=== PATIENT | female | born 1995 | race Caucasian/White ===

== ENCOUNTER 2017-02-12 01:36 | Outpatient (CLI) | payer MEDICAID ==
[~2017-02-12] VITALS: Ht 165.1 cm; Wt 78.2 kg
[~2017-02-12 01:36] MED LIST: LORTAB 5/500 501 TAB PO; NO HOME MEDICATIONS
[2017-02-12 01:43] VITALS: BP 129/76; PULSE 82; TEMP 98.1
[2017-02-12] MEDS ORDERED: PRIMROSE OIL PO (02:12)
[2017-02-12 02:15] VITALS: BP 129/76; PULSE 82; TEMP 98.1
== END 2017-02-12 03:20 | disposition home or self-care (01) ==
LOC: LDRO 01:36
DX: O46.93 Antepartum hemorrhage, unspecified, third trimester (principal); Z3A.40 40 weeks gestation of pregnancy

== ENCOUNTER 2017-02-13 14:48 | Inpatient (IN) | payer MEDICAID ==
[~2017-02-13] VITALS: Ht 165.1 cm; Wt 77.3 kg
[2017-02-13] VITALS (21 sets, daily range): BP systolic 119–173; BP diastolic 63–98; PULSE 73–111; TEMP 97.7–98.5
[~2017-02-13 14:48] MED LIST changes: +PRIMROSE OIL PO
[2017-02-13 16:06] LABS: BASO % 0.3 % (0.0-2.0); EOS # 0.1 (0.0-0.7); EOS % 0.5 % (0-4.0); GRAN # 9.6 (1.4-6.5); GRAN % 76.8 % (42.2-75.2); HEMOGLOBIN 12.8 g/dl (12.5-16.0); LYMPH % 15.8 % (20.0-51.0); MEAN CELL VOLUME 89 fl (80.0-100.0); MEAN CORPUSCULAR HEMOGLOBIN 31 pg (27.0-31.0); MEAN CORPUSCULAR HGB CONC 35 g/dl (33.0-37.0); MEAN PLATELET VOLUME 10.1 fl (7.4-10.4); MONO # 0.8 (0.1-0.6); MONO % 6.2 % (1.7-9.3); PLATELET COUNT 219 K/mm3 (130-400); RED BLOOD COUNT 4.09 M/mm3 (4.10-5.30); REDCELL DISTRIBUTION WIDTH-CV 12.9 % (11.5-14.5); WHITE BLOOD COUNT 12.4 K/mm3 (4.8-10.8)
[2017-02-13 16:07] LABS: HEMATOCRIT 36.5 % (37.0-47.0)
[2017-02-14 00:50] VITALS: BP 131/80; PULSE 93; TEMP 98.4
[2017-02-14 04:50] VITALS: BP 111/67; PULSE 70; TEMP 98.1
[2017-02-14 07:25] VITALS: BP 118/62; PULSE 78; TEMP 98
[2017-02-14 22:04] VITALS: BP 126/75; PULSE 87; TEMP 97.8
[2017-02-15 08:36] VITALS: BP 115/67; PULSE 81; TEMP 97.6
[2017-02-15] MEDS ORDERED: PERCOCET 325 MG1 TA2 PO (09:20)
[2017-02-15] MEDS ORDERED: IBU800 M1 PO (09:20)
== END 2017-02-15 13:20 | disposition home or self-care (01) | DRG 775 ==
LOC: LDRO 14:48 → OB 15:00 → LDR 15:00 → OB 02-14 00:10
PROVIDERS: Obstetrics & Gynecology
PROC: 10E0XZZ Delivery of Products of Conception, External Approach (ICD-10-PCS; principal; 2017-02-13)
PROC: 0HQ9XZZ Repair Perineum Skin, External Approach (ICD-10-PCS; 2017-02-13)
DX: O48.0 Post-term pregnancy (principal); O77.0 Labor and delivery complicated by meconium in amniotic fluid; O70.0 First degree perineal laceration during delivery; Z3A.40 40 weeks gestation of pregnancy; Z37.0 Single live birth
CPT/HCPCS: J0595; J2590; J2795; J7120

== ENCOUNTER 2021-02-05 01:25 | Inpatient (IN) | payer MEDICAID ==
[~2021-02-05] VITALS: Ht 165.1 cm; Wt 78.6 kg
[2021-02-05] VITALS (15 sets, daily range): BP systolic 101–152; BP diastolic 57–92; PULSE 68–93; TEMP 97.5–98.5
[~2021-02-05 01:25] MED LIST changes: +IBU800 M1 PO; +PERCOCET 325 MG1 TA2 PO
[2021-02-05] MEDS ORDERED: PRENATAL TABLET PO (01:48)
[2021-02-05 02:19] LABS: BASO % 0.2 % (0.0-2.0); EOS % 0.3 % (0-4.0); GRAN # 10.3 (1.4-6.5); GRAN % 76.7 % (42.2-75.2); HEMOGLOBIN 11.8 g/dl (12.5-16.0); LYMPH # 2.4 (1.2-3.4); LYMPH % 17.8 % (20.0-51.0); MEAN CELL VOLUME 92 fl (80.0-100.0); MEAN CORPUSCULAR HEMOGLOBIN 32 pg (27.0-31.0); MEAN CORPUSCULAR HGB CONC 34 g/dl (33.0-37.0); MEAN PLATELET VOLUME 9.7 fl (7.4-10.4); MONO # 0.6 (0.1-0.6); MONO % 4.5 % (1.7-9.3); PLATELET COUNT 178 K/mm3 (130-400); RED BLOOD COUNT 3.75 M/mm3 (4.10-5.30); REDCELL DISTRIBUTION WIDTH-CV 12.8 % (11.5-14.5)
[2021-02-05 02:20] LABS: HEMATOCRIT 34.5 % (37.0-47.0)
--- NOTE | 2021-02-05 02:26 | NUR ---
0146 Patient ambulatory to LD with c/o contractions since 2299. She is a G3L1 at 40.1 weeks gestation. She reports good movement and denies leaking of fluid or vaginal bleeding. Patient is uncomfortable and tense and breathing through contractions. Between contractions patient assisted to wedge left in bed. EFMs explained and applied. SVE 8/ with a bulgy bag. GBS-. Patient is requesting an epidural. 0157 Dr. Briceno called and orders received. POLITICAL CARTOONIST notified. 0206 - IV started in left wrist with labs drawn from site. IVF bolus started. 0220 - SROM with large amount of clear fluid noted. Dr. Briceno on her way to the unit from call room. 0222 - Dr. Briceno to room, patient prepped for delivery, pushing with contractions 0226 - Spontaneous vaginal delivery of viable female by Dr. Briceno. Cord clamped and cut and infant to the care of Farhan core nursery RN. 0228 - Spontaneous delivery of placenta. Pitocin infusing at 333ml/hr per orders and protocol. Fundus firm with massage. Repair of 2nd degree laceration started by Dr. Briceno.
--- NOTE | 2021-02-05 10:10 | NUR ---
Patient calls out with "lots of bleeding". Patient standing in bathroom witg moderate amount of blood on floor. Tennis ball size clot noted in bathroom hat. Patient assisted back to bed, golf ball sized clot expressed with fundal check with moderate amount of free flow noted. Firms with massage, free flow ceases. VS obtained, see documentation. Pads, clots, and chux pad weighed at 305 ml. See physician notification and orders, see EMAR. 1025- Vaginal bleeding WNL at this time, fundus firm one below with no free flow noted. Pericare given and bed linens changed. Will continue to monitor.
[2021-02-06 06:35] VITALS: BP 119/73; PULSE 75; TEMP 98.2
[2021-02-06] MEDS ORDERED: MOTRIN 800800 MG/TAB PO (08:37)
== END 2021-02-06 10:45 | disposition home or self-care (01) | DRG 807 ==
LOC: LDRO 01:25 → LDR 02:00 → OB 05:20
PROVIDERS: ADMIT Obstetrics & Gynecology
PROC: 10E0XZZ Delivery of Products of Conception, External Approach (ICD-10-PCS; principal; 2021-02-05)
PROC: 0KQM0ZZ Repair Perineum Muscle, Open Approach (ICD-10-PCS; 2021-02-05)
DX: O48.0 Post-term pregnancy (principal); Z37.0 Single live birth; O99.02 Anemia complicating childbirth; D64.9 Anemia, unspecified; O99.344 Other mental disorders complicating childbirth; F32.9 Major depressive disorder, single episode, unspecified; O70.1 Second degree perineal laceration during delivery; Z3A.40 40 weeks gestation of pregnancy
CPT/HCPCS: J2210; J2590; J7120

== ENCOUNTER 2021-02-09 17:52 | Emergency (ER) | payer MEDICAID ==
[~2021-02-09] VITALS: Ht 165.1 cm; Wt 69.5 kg
[~2021-02-09 17:52] MED LIST changes: +MOTRIN 800800 MG/TAB PO; +PRENATAL TABLET PO
[2021-02-09 18:30] LABS: COLLECTION METHOD CLEAN CATCH
[2021-02-09 18:37] LABS: PH 7 (5-8); SQUAMOUS EPITHELIAL None Seen /hpf; URINE APPEARANCE Clear; URINE BACTERIA None Seen /hpf; URINE BILIRUBIN Negative (NEGATIVE); URINE BLOOD Negative (NEGATIVE); URINE COLOR Straw; URINE GLUCOSE Negative (NEGATIVE); URINE KETONE Negative (NEGATIVE); URINE LEUKOCYTE ESTERASE Negative (NEGATIVE); URINE NITRATE Negative (NEGATIVE); URINE PROTEIN(semi-quant) Negative (NEGATIVE); URINE RBC 0-2 /hpf; URINE UROBILINOGEN Negative (NEGATIVE)
[2021-02-09 18:39] LABS: BASO % 0.2 % (0.0-2.0); EOS # 0.2 (0.0-0.7); EOS % 1.3 % (0-4.0); GRAN # 8.4 (1.4-6.5); GRAN % 75.3 % (42.2-75.2); LYMPH % 18.3 % (20.0-51.0); MEAN CELL VOLUME 92 fl (80.0-100.0); MEAN CORPUSCULAR HEMOGLOBIN 32 pg (27.0-31.0); MEAN CORPUSCULAR HGB CONC 34 g/dl (33.0-37.0); MEAN PLATELET VOLUME 9.4 fl (7.4-10.4); MONO # 0.5 (0.1-0.6); MONO % 4.5 % (1.7-9.3); PLATELET COUNT 261 K/mm3 (130-400); RED BLOOD COUNT 3.81 M/mm3 (4.10-5.30); REDCELL DISTRIBUTION WIDTH-CV 12.3 % (11.5-14.5)
[2021-02-09 18:43] LABS: BILIRUBIN,TOTAL 0.2 mg/dL (0.0-1.0); CALCIUM 10.6 mg/dL (8.4-10.2); CREATININE, serum 0.84 (0.52-1.25); POTASSIUM 3.9 mmol/L (3.4-5.0); TOTAL PROTEIN 7.6 gm/dL (6.4-8.2)
[2021-02-09 19:03] LABS: C-REACTIVE PROTEIN 2.9 mg/dL (0.0-0.9)
[2021-02-09] MEDS ORDERED: PROCARDIA XL 3030 MG PO (22:31)
[2021-02-09 22:43] VITALS: BP 128/92; PULSE 82; TEMP 98.6
== END 2021-02-09 22:43 | disposition home or self-care (01) ==
LOC: COL.ER 17:52
PROVIDERS: Nurse Practitioner Primary Care
DX: O16.5 Unspecified maternal hypertension, complicating the puerperium (principal)
CPT/HCPCS: J7030; Q9967